=== PATIENT | female | born 2005 | race Caucasian/White ===

== ENCOUNTER 2024-12-03 16:34 | Emergency (ER) | payer OTHER, SELFPAY ==
--- NOTE | ~2024-12-03 | CT_ITS ---
CLINICAL HISTORY: RLQ tenderness CT of the abdomen and pelvis utilizing intravenous contrast. No comparison. Findings: The liver and gallbladder are unremarkable. No hydronephrosis. A small right renal hypodensity is presumably a cyst. The spleen and pancreas are unremarkable. There is moderate stool in the colon. There is no bowel obstruction. Structure likely representing the appendix appears unremarkable. The bladder is nondilated. An IUD is in place. There is a 2.8 cm collapsing follicle in the right ovary with a small amount of free fluid. Impression: Structure likely representing the appendix appears unremarkable. Prominent collapsing follicle in the right ovary. This document has been electronically signed by: Alton Hunt MD on 12/03/2024 20:00:52
[2024-12-03 16:57] VITALS: BP 133/73; PULSE 71; RESP 16; TEMP 37.2; O2SAT 100; BMI 28.1
--- NOTE | 2024-12-03 17:10 | ED_ITS ---
HPI - General Adult General Chief complaint: Abdominal Pain Stated complaint: abd pain Time Seen by Provider: 12/03/24 19:31 Source: patient Limitations: no limitations History of Present Illness ED Provider: Chelsie Mazariegos PA-C HPI narrative: 19-year-old female presents with right lower quadrant pain x3 days. Pain is focal, intermittent, fluctuates in intensity, described as ?cramping/twisting?. Denies nausea vomiting diarrhea. Denies dysuria, hematuria or kidney stones. No fever. Denies constipation. Patient states she thought she was constipated, but then she had a bowel movement. No abdominal distention or inability to pass flatus from below. Related Data Allergies Allergy/AdvReac Type Severity Reaction Status Date / Time No Known Allergies Allergy Verified 12/03/24 16:58 Review of Systems 2 Review of Systems: Yes all other systems are reviewed and are negative Constitutional: Constitutional: Denies fatigue and Denies fever(s) Cardiovascular: Cardiovascular: Denies chest pain and Denies dyspnea Respiratory: Respiratory: Denies cough and Denies dyspnea Gastrointestinal: Gastrointestinal: Reports abdominal pain, Denies constipation, Denies diarrhea, Denies nausea and Denies vomiting Genitourinary: Genitourinary: Denies dysuria and Denies flank pain Endocrine: Endocrine: Denies fatigue PMFSH Past Medical History Attestation statement: The following information was validated with the patient. Social History Social History Advance Directives: No Advance Directives Information Provided: No Do you have a plan to hurt others: No Plan Physical Exam ED Vital Signs: Vital Signs - 24 hr 12/03/24 16:57 12/03/24 20:29 Temperature 98.9 F 98.9 F Pulse Rate 71 71 Respiratory Rate 16 16 Blood Pressure 133/73 133/73 Pulse Oximetry 100 100 Oxygen Delivery Method Room Air Room Air BMI result Body Mass Index 28.1 Const Other: Alert Orientation/consciousness: patient oriented x3 Resp Effort & Inspection: normal respiratory effort Cardio Other: Normal peripheral perfusion GI Other: Abdomen is soft, mild tenderness within right lower quadrant without guarding, Skin Other: Warm dry no rash Neuro General: patient oriented x3, gait normal, no focal motor deficits and CN's II- XI intact bilaterally Psych Other: Cooperative Course Course Course Narrative: RME: 19 yold female presents to the ED for RLQ pain. patient referred by Urgent care for RLQ pain. Patient states having pain for the past 3 days. Labs UA ordered. Medications Administered Discontinued Medications Generic Name Dose Route Start Last Admin Trade Name Bri PRN Reason Stop Dose Admin Iohexol 85 ml 12/03/24 19:25 12/03/24 19:25 Iohexol 350 Mg/Ml 100 Ml Infus..Btl IV 12/03/24 19:26 85 ml ONCE ONE Administration Medical Decision Making Medical Decision Making [facility] Narrative: 19-year-old female presents with right lower quadrant pain x3 days. Pain is focal, intermittent, fluctuates in intensity, described as ?cramping/twisting?. Denies nausea vomiting diarrhea. Denies dysuria, hematuria or kidney stones. No fever. Denies constipation. Patient states she thought she was constipated, but then she had a bowel movement. No abdominal distention or inability to pass flatus from below. No relevant chronic issues History: Per patient I have considered the following differential diagnoses: Appendicitis, ovarian torsion, constipation, bowel obstruction Plan: Given distribution of discomfort and nature of symptoms, I am considering appendicitis versus torsion. We will obtain a CT scan of the abdomen. The CT scan is unremarkable, she may require a transvaginal ultrasound. We will treat her discomfort. Also considering constipation, she has no active GI symptoms. Thought about bowel obstruction, but again, no obstructive symptoms no nausea vomiting she is not distended. I have independently reviewed the following tests: Labs: No leukocytosis, not anemic, no electrolyte abnormality, not urine not infected CT abd: Impression: Structure likely representing the appendix appears unremarkable. Prominent collapsing follicle in the right ovary. Lab Data 12/03/24 17:18 12/03/24 17:18 Labs: Lab Results 12/03/24 12/03/24 Range/Units 17:18 18:16 WBC 7.0 (4.8-10.8) X10*3/uL RBC 4.83 (4.20-5.50) X10*6/uL Hgb 14.1 (12.0-16.0) g/dl Hct 40.0 (37.0-47.0) % MCV 82.8 (80.0-98.0) fL MCH 29.2 (27.0-33.0) pg MCHC 35.3 H (31.0-35.0) g/dl RDW 12.5 (11.0-16.0) % Plt Count 175 (160-400) X10*3/uL MPV 9.1 L (9.4-12.3) fL Immature Gran % (Auto) 0.3 (0.0-0.4) % Neut % (Auto) 66.2 (45-73) % Lymph % (Auto) 27.1 (20-40) % Dyer % (Auto) 5.3 (2-11) % Eos % (Auto) 1.0 (0-4) % Baso % (Auto) 0.1 (0-2) % Lymph # (Auto) 1.9 (1.2-4.9) X10*3/uL Dyer # (Auto) 0.4 (0.1-1.2) X10*3/uL Eos # (Auto) 0.1 (0.0-0.4) X10*3/uL Baso # (Auto) 0.0 (0.0-0.2) X10*3/uL Abs Immat Gran (auto) 0.02 (0.00-0.03) X10*3/uL Absolute Neuts (auto) 4.6 (2.0-8.3) x10*3/uL Absolute Nucleated RBC 0.000 (0.0-0.012) X10*3/uL Nucleated RBC % (auto) 0.0 (0.0-0.2) /100WBC Sodium 138 (135-145) mmol/L Potassium 3.9 (3.3-5.1) mmol/L Chloride 109 H (96-108) mmol/L Carbon Dioxide 21 L (22-29) mmol/L Anion Gap 12 (12-20) BUN 8 L (9-16) mg/dL Creatinine 0.73 (0.5-1.4) mg/dL Estim Creat Clear Calc 142.7 Estimated GFR > 60 Random Glucose 80 (60-115) mg/dL Calcium 9.0 (8.4-10.2) mg/dL Total Bilirubin 0.8 (0.0-1.0) mg/dL AST 24 (5-31) U/L ALT 16 (0-31) U/L Alkaline Phosphatase 78 (39-117) U/L Total Protein 7.6 (6.5-8.0) g/dL Albumin 4.2 (3.5-5.0) g/dL Lipase 21 (8-78) U/L Beta HCG, Quant < 2 mIU/mL Urine Color Yellow Urine Appearance Clear Urine pH 8.0 (5.0-9.0) Ur Specific Richardson 1.025 (1.005-1.025) Urine Protein Trace (Neg-Trace) mg/dL Urine Glucose (UA) Negative (Negative) mg/dL Urine Ketones Negative (Negative) mg/dL Urine Blood Negative (Negative) Urine Nitrite Negative (Negative) Ur Leukocyte Esterase Negative (Negative) Urine Test NEGATIVE (NEGATIVE) Discharge Plan Discharge Clinical Impression: Constipation Patient Disposition: Home, Self-Care Instructions: Constipation (ED) Additional Instructions: All of your screening labs were normal. The CT scan revealed that you are constipated, there was no acute infection. See home care instructions. You need to use [id number] Colace, this is a stool softener, take it 1 to 2 times a day. In addition use MiraLax, this can be purchased [id number]. Take it several times a day, until you begin having multiple large volume bowel movements. You could also drink it every hour, until you clear your stool burden, and begin defecating clear fluid. Follow up with your primary care provider as needed. Interventions: ED Discharge Assessment Last Done: 12/03/24 20:29 Discharge Date/Time: 12/03/24 20:30 Print Language: Serbian
[2024-12-03 17:23] LABS: MANUAL DIFF FLAG NO
[2024-12-03 17:24] LABS: Basophils Percent Auto 0.1 % (0-2); Eosinophils Absolute Auto 0.1 X10*3/uL (0.0-0.4); Hemoglobin 14.1 g/dl (12.0-16.0); Imm Gran Abs Auto 0.02 X10*3/uL (0.00-0.03); Imm Gran Pct Auto 0.3 % (0.0-0.4); Lymphocytes Absolute Auto 1.9 X10*3/uL (1.2-4.9); Lymphocytes Percent Auto 27.1 % (20-40); Mean Corpuscular HGB Conc 35.3 g/dl (31.0-35.0); Mean Corpuscular Hemoglobin 29.2 pg (27.0-33.0); Mean Corpuscular Volume 82.8 fL (80.0-98.0); Mean Platelet Volume 9.1 fL (9.4-12.3); Monocytes Absolute Auto 0.4 X10*3/uL (0.1-1.2); Monocytes Percent Auto 5.3 % (2-11); Neutrophils Absolute Auto 4.6 x10*3/uL (2.0-8.3); Neutrophils Percent Auto 66.2 % (45-73); Platelet Count 175 X10*3/uL (160-400); Red Blood Count 4.83 X10*6/uL (4.20-5.50); Red Cell Distribution Width 12.5 % (11.0-16.0)
[2024-12-03 17:36] LABS: Lipase 21 U/L (8-78)
[2024-12-03 17:45] LABS: Alanine Aminotransferase 16 U/L (0-31); Albumin Level 4.2 g/dL (3.5-5.0); Alkaline Phosphatase 78 U/L (39-117); Anion Gap 12 (12-20); Aspartate Amino Transferase 24 U/L (5-31); Bilirubin Total 0.8 mg/dL (0.0-1.0); Blood Urea Nitrogen 8 mg/dL (9-16); Carbon Dioxide 21 mmol/L (22-29); Chloride 109 mmol/L (96-108); Creatinine Clr Calc Pharmacy 142.7; Estimated Glomerular Filt Rate > 60; Glucose Random 80 mg/dL (60-115); HCG Quantitative < 2 mIU/mL; Potassium 3.9 mmol/L (3.3-5.1); Sodium 138 mmol/L (135-145); Total Protein 7.6 g/dL (6.5-8.0)
[2024-12-03 18:25] LABS: Appearance Urine Clear; Color Urine Yellow; Glucose Urine UA Negative (Negative); Leukocyte Esterase Urine Negative (Negative); Nitrite Urine Negative (Negative); Specific Gravity - Urine 1.025 (1.005-1.025); Urine Blood Negative (Negative); Urine Ketones Negative (Negative); Urine Protein Trace mg/dL (Neg-Trace)
[2024-12-03 18:26] LABS: UPreg QC Valid YES; Urine Pregnancy NEGATIVE (NEGATIVE)
[2024-12-03] MEDS: iohexoL 350 MG/ML 100 ML INFUS..BTL 85 ML IV (19:25)
[2024-12-03 20:29] VITALS: BP 133/73; PULSE 71; RESP 16; TEMP 37.2; O2SAT 100
== END 2024-12-03 20:30 | disposition home or self-care (01) ==
PROVIDERS: Physician Assistant; Emergency Provider Internal Medicine
DX: K59.00 Constipation, unspecified (principal); R10.31 Right lower quadrant pain; R25.2 Cramp and spasm; R10.2 Pelvic and perineal pain
CPT/HCPCS: 36415; 74177; 80053; 81003; 81025; 83690; 84702; 85025; 99282; 99284; Q9967

== ENCOUNTER → 2024-12-03 18:14 | Outpatient (BNV) | payer OTHER, SELFPAY | PROVIDERS: Emergency Provider Internal Medicine; Visit Provider Radiology Diagnostic Radiology | DX: R10.813 Right lower quadrant abdominal tenderness (principal) | CPT/HCPCS: 74177 ==